=== PATIENT | female | born 1935 | race Caucasian/White ===

== ENCOUNTER 2019-11-02 12:11 | Emergency (ER) | payer MEDICARE, OTHER ==
[~2019-11-02] VITALS: Ht 167.6 cm; Wt 76.0 kg
[2019-11-02] MEDS ORDERED: LIDOcaine 1% W/epiNEPHrine 1:200,000 10ml vial IJ ONE (13:00)
[2019-11-02] MEDS ORDERED: diph,pertuss (acell), tet (DTaP-PEDs)/PF 0.5ml syringe IMVAC ONE (13:50)
[2019-11-02] MEDS ORDERED: TETanus/Pertussis (Acell)/Diphther VAC/PF (Tdap-Adult) 0.5ml syringe IMVAC ONE (13:55)
[2019-11-02 14:35] VITALS: BP 147/77
== END 2019-11-02 14:38 | disposition home or self-care (01) ==
LOC: ER 12:12
DX: S01.81XA Laceration without foreign body of other part of head, initial encounter (principal); E78.00 Pure hypercholesterolemia, unspecified; I10 Essential (primary) hypertension; W01.0XXA Fall on same level from slipping, tripping and stumbling without subsequent striking against object, initial encounter; Y93.89 Activity, other specified; Y92.096 Garden or yard of other non-institutional residence as the place of occurrence of the external cause; Y99.8 Other external cause status
CPT/HCPCS: 12034; 12054; 70450; 90471; 90715; 99285